=== PATIENT | male | born 1945 | race Hispanic/Latino ===

== ENCOUNTER 2018-01-22 11:13 | Inpatient (IN) | payer OTHER ==
[~2018-01-22] VITALS: Ht 167.6 cm; Wt 66.4 kg
[2018-01-22 13:25] LABS: BASOPHILS % (AUTO) 0.5 % (0.0-5.0); EOSINOPHILS % (AUTO) 0.6 % (0.0-8.0); HEMATOCRIT 41.8 % (42-54); LYMPHOCYTES % (AUTO) 13.6 % (21.0-51.0); MEAN CORPUSCULAR HEMOGLOBIN 31.6 pg (27.0-33.0); MEAN CORPUSCULAR HGB CONC 33.7 g/dL (32.0-36.0); MEAN CORPUSCULAR VOLUME 93.8 fL (79-99); MONOCYTES % (AUTO) 11.9 % (3.0-13.0); NEUTROPHILS % (AUTO) 73.4 % (40.0-77.0); NUCLEATED RED BLOOD CELLS 0.1 % (0.0-0.19); PLATELET COUNT (AUTO) 226 K/uL (130-400); RED BLOOD CELL COUNT(AUTO) 4.46 MIL/uL (4.50-6.20); RED CELL DISTRIBUTION WIDTH 15.3 % (11.0-15.5); WHITE BLOOD COUNT (AUTO) 6.5 K/uL (4.8-10.8)
[2018-01-22 13:35] LABS: CREATININE 1.2 mg/dL (0.5-1.5); POTASSIUM 3.6 mmol/L (3.5-5.1)
[2018-01-22 13:39] LABS: ALBUMIN 2.6 g/dL (3.5-5.0); BILIRUBIN,TOTAL 0.7 mg/dL (0.2-1.0); TOTAL PROTEIN, SERUM 7.2 g/dL (6.0-8.3)
[2018-01-22] MEDS ORDERED: HYDROMORPHONE 1 MG/1 ML AMP ONE (13:49)
[2018-01-22] MEDS ORDERED: ONDANSETRON HCL 4 MG/2 ML VIAL ONE (13:49)
[2018-01-22 13:51] LABS: CREATINE KINASE, TOTAL 32 U/L (21-232); MYOGLOBIN 38 ng/mL (10-92); TROPONIN I < 0.04 ng/mL (0.00-0.06)
[2018-01-22 14:02] LABS: APPEARANCE,URINE Cloudy (CLEAR); BILIRUBIN,URINE Moderate (NEGATIVE); COLOR,URINE Dark Yellow (YELLOW); GLUCOSE, URINE (UA) >=1000 mg/dL (NEGATIVE); KETONES,URINE >=160 mg/dL (NEGATIVE); LEUKOCYTE ESTERASE ,URINE Small (NEGATIVE); NITRATE,URINE Negative (NEGATIVE); OCCULT BLOOD,URINE Negative (NEGATIVE); PROTEIN,URINE POS 2+ (NEGATIVE)
[2018-01-22 14:13] LABS: RBC,URINE None Seen /HPF (0-1)
[2018-01-22 14:14] LABS: AMORPHOUS SEDIMENT,UR Few /LPF (None Seen); BACTERIA,URINE Few /HPF (None Seen); MUCUS,URINE Moderate LPF (None Seen)
[2018-01-22] MEDS: LACTATED RINGERS 1000ML 1,000 ML IV SCH ×2 (15:33→23:29)
[2018-01-22] MEDS ORDERED: ZOSYN 3.375GM+NS 50ML 50 ML IV SCH (15:45)
[2018-01-22] MEDS ORDERED: OMEP20CA10 PO (15:53)
[2018-01-22] MEDS ORDERED: CREON12 PO (15:53)
[2018-01-22] MEDS ORDERED: METR500T4 PO (15:53)
[2018-01-22] MEDS ORDERED: ONDA4TAB9 PO (15:53)
[2018-01-22] MEDS ORDERED: DICY10CA13 PO (15:53)
[2018-01-22 16:00] VITALS: BP 125/72
[2018-01-22] MEDS ORDERED: INSULIN R PO SS1 SQ SCH (16:30)
[2018-01-22] MEDS: ONDANSETRON HCL 4 MG/2 ML VIAL IVP PRN (18:15)
[2018-01-22] MEDS: HYDROMORPHONE 1 MG/1 ML AMP IVP PRN ×2 (18:16→23:30)
[2018-01-22 18:49] LABS: BASOPHILS % (AUTO) 0.6 % (0.0-5.0); EOSINOPHILS % (AUTO) 1.3 % (0.0-8.0); HEMATOCRIT 40.2 % (42-54); LYMPHOCYTES % (AUTO) 18.8 % (21.0-51.0); MEAN CORPUSCULAR HEMOGLOBIN 31.2 pg (27.0-33.0); MEAN CORPUSCULAR HGB CONC 33.4 g/dL (32.0-36.0); MEAN CORPUSCULAR VOLUME 93.6 fL (79-99); NEUTROPHILS % (AUTO) 67.3 % (40.0-77.0); PLATELET COUNT (AUTO) 235 K/uL (130-400); RED CELL DISTRIBUTION WIDTH 15.1 % (11.0-15.5); WHITE BLOOD COUNT (AUTO) 7.2 K/uL (4.8-10.8)
[2018-01-22 19:02] LABS: INR 1.11 (0.85-1.15); PROTHROMBIN TIME 11.6 SEC (9.6-11.6)
[2018-01-22 19:06] LABS: CREATININE 1.3 mg/dL (0.5-1.5); POTASSIUM 3.4 mmol/L (3.5-5.1)
[2018-01-22 19:37] VITALS: BP 117/74
[2018-01-22 23:54] VITALS: BP 117/68
[2018-01-23] VITALS (20 sets, daily range): BP systolic 106–137; BP diastolic 64–77
[2018-01-23] MEDS: ONDANSETRON HCL 4 MG/2 ML VIAL IVP PRN (00:15)
[2018-01-23] MEDS: ZOSYN 3.375GM+NS 50ML 50 ML IV SCH ×4 (02:22→20:48)
[2018-01-23] MEDS: HYDROMORPHONE 1 MG/1 ML AMP IVP PRN ×5 (04:33→23:46)
[2018-01-23] MEDS: LACTATED RINGERS 1000ML 1,000 ML IV SCH ×3 (06:00→20:48)
[2018-01-23] MEDS: INSULIN HUMULIN R 100 UNIT/ML 3ML SQ SCH ×4 (06:00→18:00)
[2018-01-23] MEDS ORDERED: IOHEXOL-350 50ML VIAL IV ONE (06:03)
[2018-01-23] MEDS ORDERED: FENTANYL CITRATE PF 50 MCG/1 ML 2ML VIAL ONE (06:28)
[2018-01-23] MEDS ORDERED: PROPOFOL 1000 MG/100 ML 100 ML IV ONE (06:28)
[2018-01-23] MEDS ORDERED: GLYCOPYRROLATE 0.2 MG/ML 5 ML VIAL ONE (06:28)
[2018-01-23] MEDS ORDERED: LIDOCAINE HCL-MPF 2% 5ML VIAL ONE (06:28)
[2018-01-23] MEDS ORDERED: PHENYLEPHRINE HCL 10 MG/ML 1ML VIAL IV ONE (06:28)
[2018-01-23] MEDS ORDERED: POTASSIUM CHLORIDE 20MEQ/100ML 100 ML IV PRN (17:45)
[2018-01-23] MEDS ORDERED: POTASSIUM CHLORIDE 20 MEQ ERTAB PO PRN (17:45)
[2018-01-23] MEDS ORDERED: POTASSIUM CHLORIDE 10% ELIXIR 20 MEQ/15 ML UDCUP PO PRN (17:45)
[2018-01-23] MEDS ORDERED: LIDOCAINE HCL-MPF 1% 2ML VIAL IVP PRN ×2 (17:45)
[2018-01-24] VITALS: BP 134/73
[2018-01-24 04:00] VITALS: BP 129/77
[2018-01-24] MEDS: HYDROMORPHONE 1 MG/1 ML AMP IVP PRN ×5 (04:08→20:26)
[2018-01-24 04:41] LABS: HEMATOCRIT 37.8 % (42-54); MEAN CORPUSCULAR HEMOGLOBIN 31.6 pg (27.0-33.0); MEAN CORPUSCULAR HGB CONC 33.8 g/dL (32.0-36.0); MEAN CORPUSCULAR VOLUME 93.4 fL (79-99); PLATELET COUNT (AUTO) 220 K/uL (130-400); RED BLOOD CELL COUNT(AUTO) 4.05 MIL/uL (4.50-6.20); WHITE BLOOD COUNT (AUTO) 6.5 K/uL (4.8-10.8)
[2018-01-24 04:50] LABS: ALBUMIN 2.2 g/dL (3.5-5.0); BILIRUBIN,TOTAL 0.7 mg/dL (0.2-1.0); TOTAL PROTEIN, SERUM 6.3 g/dL (6.0-8.3)
[2018-01-24 05:07] LABS: POTASSIUM 2.9 mmol/L (3.5-5.1)
[2018-01-24] MEDS: ZOSYN 3.375GM+NS 50ML 50 ML IV SCH ×3 (05:26→20:26)
[2018-01-24] MEDS: INSULIN HUMULIN R 100 UNIT/ML 3ML SQ SCH ×5 (06:00→21:00)
[2018-01-24 07:30] VITALS: BP 134/75
[2018-01-24] MEDS: POTASSIUM CHLORIDE 20MEQ/100ML 100 ML IV PRN ×2 (08:33→17:38)
[2018-01-24 11:00] VITALS: BP 129/63
[2018-01-24] MEDS: LACTATED RINGERS 1000ML 1,000 ML IV SCH (12:06)
[2018-01-24 16:00] VITALS: BP 138/79
[2018-01-24] MEDS ORDERED: TRAMADOL HCL 50 MG TABLET PO PRN (17:15)
[2018-01-24 20:00] VITALS: BP 138/76
[2018-01-25] VITALS: BP 140/82
[2018-01-25] MEDS: HYDROMORPHONE 1 MG/1 ML AMP IVP PRN ×6 (00:07→20:57)
[2018-01-25 04:00] VITALS: BP 140/78
[2018-01-25] MEDS: ZOSYN 3.375GM+NS 50ML 50 ML IV SCH ×3 (04:08→20:46)
[2018-01-25] MEDS: INSULIN HUMULIN R 100 UNIT/ML 3ML SQ SCH ×4 (06:13→20:57)
[2018-01-25 07:30] VITALS: BP 125/79
[2018-01-25 11:00] VITALS: BP 135/74
[2018-01-25 16:00] VITALS: BP 140/77
[2018-01-25] MEDS ORDERED: FAMOTIDINE 20MG TAB 20 MG TAB ONE (17:29)
[2018-01-25 20:14] VITALS: BP 136/84
[2018-01-26] VITALS (7 sets, daily range): BP systolic 99–144; BP diastolic 54–83
[2018-01-26] MEDS: HYDROMORPHONE 1 MG/1 ML AMP IVP PRN ×5 (01:48→21:21)
[2018-01-26] MEDS: ZOSYN 3.375GM+NS 50ML 50 ML IV SCH ×3 (05:41→21:08)
[2018-01-26] MEDS: INSULIN HUMULIN R 100 UNIT/ML 3ML SQ SCH ×4 (05:54→21:16)
[2018-01-26] MEDS: PANTOPRAZOLE SODIUM 40 MG TABLET.DR PO SCH (08:51)
[2018-01-26] MEDS ORDERED: SODIUM CHLORIDE 0.9% 250 ML IV ONE (16:53)
[2018-01-27] VITALS: BP 110/73
[2018-01-27 04:00] VITALS: BP 132/82
[2018-01-27] MEDS: HYDROMORPHONE 1 MG/1 ML AMP IVP PRN ×4 (04:01→18:13)
[2018-01-27] MEDS: ZOSYN 3.375GM+NS 50ML 50 ML IV SCH ×3 (04:19→21:33)
[2018-01-27] MEDS: INSULIN HUMULIN R 100 UNIT/ML 3ML SQ SCH ×4 (06:29→21:41)
[2018-01-27 07:30] VITALS: BP 129/75
[2018-01-27] MEDS: PANTOPRAZOLE SODIUM 40 MG TABLET.DR PO SCH (10:06)
[2018-01-27 11:00] VITALS: BP 124/73
[2018-01-27 17:22] VITALS: BP 129/89
[2018-01-27 19:59] VITALS: BP 129/76
[2018-01-27] MEDS ORDERED: POTASSIUM CHLORIDE 10 MEQ/TAB.SA PO ONE ×2 (21:26)
[2018-01-28] VITALS: BP 121/74
[2018-01-28] MEDS: HYDROMORPHONE 1 MG/1 ML AMP IVP PRN ×3 (01:52→12:57)
[2018-01-28 04:00] VITALS: BP 125/72
[2018-01-28] MEDS: ZOSYN 3.375GM+NS 50ML 50 ML IV SCH (05:15)
[2018-01-28] MEDS: INSULIN HUMULIN R 100 UNIT/ML 3ML SQ SCH ×2 (06:49→12:59)
[2018-01-28 08:00] VITALS: BP 135/78
[2018-01-28] MEDS: PANTOPRAZOLE SODIUM 40 MG TABLET.DR PO SCH (08:23)
[2018-01-28 11:41] VITALS: BP 121/93
[2018-01-28 17:24] VITALS: BP 136/86
== END 2018-01-28 18:40 | disposition home or self-care (01) | DRG 436 ==
LOC: EDH 11:13 → EDHIP 11:14 → 3BH 14:46
PROVIDERS: ADMIT Internal Medicine Pulmonary Disease; ATTEND Internal Medicine Pulmonary Disease
PROC: 0DB68ZX Excision of Stomach, Via Natural or Artificial Opening Endoscopic, Diagnostic (ICD-10-PCS; principal; 2018-01-23)
DX: C25.9 Malignant neoplasm of pancreas, unspecified (principal); E87.1 Hypo-osmolality and hyponatremia; E44.0 Moderate protein-calorie malnutrition; K86.2 Cyst of pancreas; K86.1 Other chronic pancreatitis; E86.0 Dehydration; E11.9 Type 2 diabetes mellitus without complications; E78.00 Pure hypercholesterolemia, unspecified; E78.5 Hyperlipidemia, unspecified; I10 Essential (primary) hypertension; R93.3 Abnormal findings on diagnostic imaging of other parts of digestive tract; K31.89 Other diseases of stomach and duodenum; I25.10 Atherosclerotic heart disease of native coronary artery without angina pectoris; Z68.23 Body mass index [BMI] 23.0-23.9, adult; Z95.1 Presence of aortocoronary bypass graft; Z90.49 Acquired absence of other specified parts of digestive tract; Z82.49 Family history of ischemic heart disease and other diseases of the circulatory system; Z79.4 Long term (current) use of insulin
CPT/HCPCS: 36415; 43231; 43232; 71045; 74176; 80048; 80053; 80061; 81001; 82150; 82550; 82948; 83605; 83690; 83874; 84132; 84484; 85025; 85027; 85610; 88108; 88305; 88312; 88342; 93005; 97039; J1170; J1815; J2370; J2405; J2543; J2704; J3010; J3480; J3490; J7030; J7120; Q9967

== ENCOUNTER 2018-02-12 21:18 | Observation (INO) | payer OTHER ==
[~2018-02-12] VITALS: Ht 162.6 cm; Wt 58.2 kg
[~2018-02-12 21:18] MED LIST: CREON12 PO; OMEP20CA10 PO; ONDA4TAB9 PO
[2018-02-12] MEDS ORDERED: SODIUM CHLORIDE 0.9% 1000ML 1,000 ML IV ONE ×2 (22:32→23:54)
[2018-02-12] MEDS ORDERED: TETANUS/DIPHTHERIA TOXOID [ADULT] 0.5 ML VIAL IM ONE (22:34)
[2018-02-12 22:35] LABS: BASOPHILS % (AUTO) 0.5 % (0.0-5.0); EOSINOPHILS % (AUTO) 0.1 % (0.0-8.0); HEMATOCRIT 48.9 % (42-54); LYMPHOCYTES % (AUTO) 2.3 % (21.0-51.0); MEAN CORPUSCULAR HEMOGLOBIN 32.7 pg (27.0-33.0); MEAN CORPUSCULAR HGB CONC 33.7 g/dL (32.0-36.0); MONOCYTES % (AUTO) 4.9 % (3.0-13.0); NEUTROPHILS % (AUTO) 92.2 % (40.0-77.0); PLATELET COUNT (AUTO) 300 K/uL (130-400); RED BLOOD CELL COUNT(AUTO) 5.04 MIL/uL (4.50-6.20); RED CELL DISTRIBUTION WIDTH 18.1 % (11.0-15.5); WHITE BLOOD COUNT (AUTO) 16.7 K/uL (4.8-10.8)
[2018-02-12 22:43] LABS: ALBUMIN 2.8 g/dL (3.5-5.0); BILIRUBIN,TOTAL 0.8 mg/dL (0.2-1.0); CREATININE 1.9 mg/dL (0.5-1.5); POTASSIUM 3.4 mmol/L (3.5-5.1); TOTAL PROTEIN, SERUM 8.7 g/dL (6.0-8.3)
[2018-02-12] MEDS ORDERED: CEFTRIAXONE SODIUM 2 GM VIAL ONE (23:54)
[2018-02-13] MEDS: CEFTRIAXONE SODIUM 1 GM IVP SCH (01:49)
[2018-02-13] MEDS: LACTATED RINGERS 1000ML 1,000 ML IV SCH ×2 (02:00→10:01)
[2018-02-13] MEDS ORDERED: MORPHINE SULFATE 2 MG/ML 1ML SYG IVP PRN ×2 (02:00→14:00)
[2018-02-13 02:27] LABS: APPEARANCE,URINE Clear (CLEAR); BILIRUBIN,URINE Negative (NEGATIVE); COLOR,URINE Yellow (YELLOW); GLUCOSE, URINE (UA) >=1000 mg/dL (NEGATIVE); KETONES,URINE >=160 mg/dL (NEGATIVE); LEUKOCYTE ESTERASE ,URINE Negative (NEGATIVE); NITRATE,URINE Negative (NEGATIVE); OCCULT BLOOD,URINE Trace (NEGATIVE); PROTEIN,URINE POS 1+ (NEGATIVE)
[2018-02-13 02:50] LABS: BACTERIA,URINE Rare /HPF (None Seen); RBC,URINE 0-1 /HPF (0-1); SQUAMOUS EPITHELIAL CELL,UR Moderate /HPF (0-2); WBC,URINE 0-1 /HPF (0-1)
[2018-02-13 03:55] VITALS: BP 104/73
[2018-02-13] MEDS ORDERED: HYDR15SO7 PO (04:02)
[2018-02-13] MEDS ORDERED: INSU100I29 SQ (04:11)
[2018-02-13] MEDS ORDERED: ONDA4TAB10 PO (04:11)
[2018-02-13 06:28] LABS: HEMATOCRIT 45.5 % (42-54); MEAN CORPUSCULAR HEMOGLOBIN 31.5 pg (27.0-33.0); MEAN CORPUSCULAR HGB CONC 32.3 g/dL (32.0-36.0); MEAN CORPUSCULAR VOLUME 97.4 fL (79-99); NUCLEATED RED BLOOD CELLS 0.2 % (0.0-0.19); PLATELET COUNT (AUTO) 235 K/uL (130-400); RED BLOOD CELL COUNT(AUTO) 4.67 MIL/uL (4.50-6.20); RED CELL DISTRIBUTION WIDTH 18.6 % (11.0-15.5); WHITE BLOOD COUNT (AUTO) 14.6 K/uL (4.8-10.8)
[2018-02-13 06:33] LABS: CREATININE 1.6 mg/dL (0.5-1.5); POTASSIUM 3.7 mmol/L (3.5-5.1)
[2018-02-13 08:00] VITALS: BP 132/75
[2018-02-13] MEDS: PANTOPRAZOLE SODIUM 40 MG TABLET.DR PO SCH (09:00)
[2018-02-13 12:00] VITALS: BP 107/53
[2018-02-13] MEDS ORDERED: HYDROCODONE/ACETAMINOPHEN 5/325 MG TAB PO PRN ×2 (14:00)
[2018-02-13] MEDS: ONDANSETRON ODT 4 MG TAB PO SCH ×2 (14:15→22:03)
[2018-02-13 16:00] VITALS: BP 120/71
[2018-02-13] MEDS: INSULIN LISPRO 100 UNIT/ML 3ML SQ SCH (17:00)
[2018-02-13 20:00] VITALS: BP 122/71
[2018-02-13] MEDS ORDERED: NON-FORMULARY MEDICATION 1 EACH (Omeprazole 20 MG) PO SCH (21:00)
[2018-02-13] MEDS: HYDROCODONE/ACETAMINOPHEN 7.5/325 MG 15 ML UDCUP PO SCH (22:03)
[2018-02-13] MEDS: LIPASE/PROTEASE/AMYLASE 5000/17000/24000 PO SCH (22:03)
[2018-02-14] VITALS: BP 109/60
[2018-02-14] MEDS: CEFTRIAXONE SODIUM 1 GM IVP SCH (02:06)
[2018-02-14 04:00] VITALS: BP 112/68
[2018-02-14] MEDS: LACTATED RINGERS 1000ML 1,000 ML IV SCH (05:54)
[2018-02-14] MEDS: ONDANSETRON ODT 4 MG TAB PO SCH ×2 (06:15→14:15)
[2018-02-14] MEDS: INSULIN LISPRO 100 UNIT/ML 3ML SQ SCH ×2 (07:30→12:55)
[2018-02-14] MEDS ORDERED: ETHYL ALCOHOL 5 ML VIAL IJ SCH (07:45)
[2018-02-14] MEDS ORDERED: BUPIVACAINE/PF 0.25% 50ML VIAL IJ SCH (07:45)
[2018-02-14] MEDS: LIPASE/PROTEASE/AMYLASE 5000/17000/24000 PO SCH ×2 (09:00→14:00)
[2018-02-14 09:45] LABS: ABG BASE EXCESS -14.5 mmol/L (-2.0-3.0); ABG HCO3 8.3 mmol/L (21.0-28.0); ABG OXYGEN SATURATION 99.2 % (95.0-99.0); ABG PCO2 16 mmHg (35-48)
[2018-02-14 12:00] VITALS: BP 96/54
[2018-02-14] MEDS ORDERED: METHYLPREDNISOLONE SOD SUCC 40MG/ML 1ML IVP SCH ×2 (12:00→21:00)
[2018-02-14] MEDS ORDERED: FUROSEMIDE 10 MG/ML 2ML VIAL IV SCH (12:00)
[2018-02-14] MEDS: PANTOPRAZOLE SODIUM 40 MG TABLET.DR PO SCH (12:35)
[2018-02-14] MEDS: HYDROCODONE/ACETAMINOPHEN 7.5/325 MG 15 ML UDCUP PO SCH (12:35)
[2018-02-14 16:00] VITALS: BP 89/52
== END 2018-02-14 20:41 | disposition home or self-care (01) ==
LOC: EDH 21:18 → EDHIP 02-13 00:40 → 3BH 02-13 01:35
PROVIDERS: ADMIT Internal Medicine; ATTEND Internal Medicine
DX: C25.9 Malignant neoplasm of pancreas, unspecified (principal); E86.0 Dehydration; I25.10 Atherosclerotic heart disease of native coronary artery without angina pectoris; I10 Essential (primary) hypertension; S00.31XA Abrasion of nose, initial encounter; W06.XXXA Fall from bed, initial encounter; Y93.89 Activity, other specified; Y92.009 Unspecified place in unspecified non-institutional (private) residence as the place of occurrence of the external cause; Y99.8 Other external cause status; Z95.1 Presence of aortocoronary bypass graft; Z85.07 Personal history of malignant neoplasm of pancreas; Z23 Encounter for immunization
CPT/HCPCS: 36415 ×2; 36600; 70450; 71045; 72170; 80048; 80053; 81001; 82803; 82948 ×6; 85025; 85027; 87040 ×2; 90471; 90714; 93005; 96361 ×2; 96372; 96374; 96375; 99285; A4218; G0378 ×44; J0696 ×2; J1940; J2920; J7030 ×2; J7120 ×3; J3490